=== PATIENT | male | born 1995 | race Caucasian/White ===

== ENCOUNTER 2021-06-20 13:27 | Inpatient (IN) | payer MEDICAID ==
[~2021-06-20] VITALS: Ht 185.4 cm; Wt 97.4 kg
[2021-06-20] MEDS ORDERED: HALOPERIDOL 5 MG TABLET PO PRN (13:45)
[2021-06-20] MEDS ORDERED: ZOLPIDEM TARTRATE 10 MG TABLET PO PRN (13:45)
[2021-06-20 14:16] LABS: GLUCOMETER DEV NAME(LOC) POC.BV
[2021-06-20 15:15] VITALS: BP 128/85
[2021-06-20] MEDS: LORazepam 2 MG TABLET PO PRN (18:10)
[2021-06-21] MEDS ORDERED: LOPERAMIDE HCL 2 MG CAPSULE PO PRN (07:00)
[2021-06-21] MEDS ORDERED: ACETAMINOPHEN 325 MG TABLET PO PRN (07:00)
[2021-06-21] MEDS ORDERED: BENZOCAINE/MENTHOL LOZENGE PO PRN (07:00)
[2021-06-21] MEDS ORDERED: BACITRACIN 28 GM OINTMENT TP PRN (07:00)
[2021-06-21] MEDS ORDERED: IBUPROFEN 600 MG TABLET PO PRN (07:00)
[2021-06-21] MEDS ORDERED: MAG HYDROX/AL HYDROX/SIMETH ES 30 ML SUSPENSION UDCUP PO PRN (07:00)
[2021-06-21] MEDS ORDERED: DOCUSATE SODIUM 100 MG CAPSULE PO PRN (07:00)
[2021-06-21] MEDS ORDERED: CloNIDine HCL 0.1 MG TABLET PO PRN (07:00)
[2021-06-21] MEDS ORDERED: MAGNESIUM HYDROXIDE SUSPENSION 30 ML UDCUP PO PRN (07:00)
[2021-06-21] MEDS ORDERED: ONDANSETRON HCL 4 MG TABLET PO PRN (07:00)
[2021-06-21] MEDS ORDERED: OMEPRAZOLE 20 MG CAPSULE PO PRN (07:00)
[2021-06-21] MEDS ORDERED: ALBUTEROL SULFATE HFA 90 MCG/PUFF 8 GM INHALER IH PRN (07:00)
[2021-06-21] MEDS ORDERED: PETROLATUM,WHITE 28 GM JELLY TP PRN (07:00)
[2021-06-21 07:54] LABS: EOSINOPHILS % (AUTO) 2.6 % (1.0-6.0); HEMATOCRIT 46.8 % (41-53); HEMOGLOBIN 15.7 g/dL (13.5-17.5); LYMPHOCYTES # (AUTO) 2.4 K/uL (1.0-4.8); LYMPHOCYTES % (AUTO) 39.9 % (22.0-44.0); MEAN CORPUSCULAR HEMOGLOBIN 29.8 pg (26.0-34.0); MEAN CORPUSCULAR HGB CONC 33.7 G/dL (31.0-37.0); MEAN CORPUSCULAR VOLUME 89 fL (80-100); MONOCYTES # (AUTO) 0.5 K/uL (0.1-1.0); MONOCYTES % (AUTO) 8.2 % (2.0-9.0); NEUTROPHILS # (AUTO) 2.9 K/uL (1.8-7.7); NEUTROPHILS % (AUTO) 48.3 % (40.0-70.0); PLATELET COUNT (AUTO) 274 K/uL (150-450); RED BLOOD CELL COUNT(AUTO) 5.28 MIL/uL (4.50-5.90); RED CELL DISTRIBUTION WIDTH 12.7 % (11.5-14.5)
[2021-06-21 08:07] VITALS: BP 127/78
[2021-06-21 08:09] LABS: HEMOGLOBIN A1C 5.5 % (3.8-5.6)
[2021-06-21 08:11] LABS: ALANINE AMINOTRANSFERASE 40 U/L (12-78); ALBUMIN 3.6 g/dL (3.4-5.0); ALKALINE PHOSPHATASE 87 U/L (46-116); ANION GAP 6 mmol/L (8-16); ASPARTATE AMINOTRANSFERASE 27 U/L (15-37); BILIRUBIN,TOTAL 0.5 mg/dL (0.1-1.0); CALCIUM, TOTAL 8.7 mg/dL (8.8-10.5); CARBON DIOXIDE 33 mmol/L (22-29); CHLORIDE 105 mmol/L (98-107); CREATININE 1.14 mg/dL (0.60-1.30); GLOMERULAR FILTR. RATE CALC > 60 mL/min (>60); GLUCOSE,RANDOM 79 mg/dL (70-110); POTASSIUM 4.3 mmol/L (3.5-5.1); SODIUM SERUM 144 mmol/L (136-145); TOTAL PROTEIN, SERUM 7.4 g/dL (6.4-8.2); UREA NITROGEN, BLOOD 10 mg/dL (7-18)
[2021-06-21] MEDS: FLUoxetine HCL 20 MG CAPSULE PO SCH (08:26)
[2021-06-21] MEDS: GABAPENTIN 300 MG CAPSULE PO SCH ×3 (08:26→16:59)
[2021-06-21] MEDS: ARIPiprazole 10 MG TABLET PO SCH (08:26)
[2021-06-21] MEDS: HydrOXYzine HCL 25 MG TABLET PO SCH ×3 (08:26→17:00)
[2021-06-21 08:51] LABS: CARBAMAZEPINE (TEGRETOL) 1.2 mcg/mL (4.0-12.0); FREE T4 (FREE THYROXINE) 1.04 ng/dL (0.76-1.46); THYROID STIMULATING HORMONE 1.46 uIU/mL (0.36-3.74)
[2021-06-21] MEDS: BuPROPion HCL XL 150 MG ER TABLET PO SCH (13:38)
[2021-06-21 16:09] VITALS: BP 121/80
[2021-06-22 01:33] VITALS: BP 113/79
[2021-06-22 08:10] VITALS: BP 122/77
[2021-06-22] MEDS: FLUoxetine HCL 20 MG CAPSULE PO SCH (08:42)
[2021-06-22] MEDS: GABAPENTIN 300 MG CAPSULE PO SCH ×3 (08:42→16:22)
[2021-06-22] MEDS: HydrOXYzine HCL 25 MG TABLET PO SCH ×3 (08:42→16:22)
[2021-06-22] MEDS: BuPROPion HCL XL 150 MG ER TABLET PO SCH (08:42)
[2021-06-22] MEDS: ARIPiprazole 10 MG TABLET PO SCH (08:42)
[2021-06-22] MEDS: LORazepam 2 MG TABLET PO PRN ×3 (10:22→19:35)
[2021-06-22 16:20] VITALS: BP 140/94
[2021-06-23 01:11] VITALS: BP 120/77
[2021-06-23 08:10] VITALS: BP 126/84
[2021-06-23] MEDS: GABAPENTIN 300 MG CAPSULE PO SCH ×3 (08:16→16:35)
[2021-06-23] MEDS: BuPROPion HCL XL 150 MG ER TABLET PO SCH (08:16)
[2021-06-23] MEDS: HydrOXYzine HCL 25 MG TABLET PO SCH ×3 (08:16→16:35)
[2021-06-23] MEDS: ARIPiprazole 10 MG TABLET PO SCH (08:16)
[2021-06-23] MEDS: FLUoxetine HCL 20 MG CAPSULE PO SCH (08:16)
[2021-06-23 08:28] LABS: CHOL/HDL RATIO 3.4 (4.2-7.3)
[2021-06-23] MEDS ORDERED: GABA-1181 PO (15:03)
[2021-06-23] MEDS ORDERED: ARIP10TA38 PO (15:03)
[2021-06-23] MEDS ORDERED: HYD25 PO (15:03)
[2021-06-23] MEDS ORDERED: FLUO20CA36 PO (15:05)
[2021-06-23] MEDS ORDERED: BUPR-93 PO (15:05)
[2021-06-23 17:17] VITALS: BP 121/79
== END 2021-06-23 18:00 | disposition home or self-care (01) | DRG 754 ==
LOC: B2S 13:53
PROVIDERS: ADMIT Psychiatry & Neurology Psychiatry; ATTEND Psychiatry & Neurology Psychiatry
DX: F32.9 Major depressive disorder, single episode, unspecified (principal); F41.9 Anxiety disorder, unspecified; Z20.822 Contact with and (suspected) exposure to COVID-19; G47.00 Insomnia, unspecified; K59.00 Constipation, unspecified; Z79.899 Other long term (current) drug therapy
CPT/HCPCS: 80053; 80061; 80156; 83036; 84436; 84439; 84443; 85025; G0480